=== PATIENT | female | born 1960 | race Caucasian/White ===

== ENCOUNTER → 2017-02-27 | Outpatient (CLI) | payer OTHER ==
[~2017-02-27] MED LIST: BIOTIN2500 MCG PO; BIOTIN5 MG PO; Celexa40 MG PO; D3 DOTS2000 UNIT PO; ESTROVEN ENERG1 EACH PO; EZET10 PO; FISH1000 PO; Hair, Skin & N1 EACH PO; LEVSOD50; MAGNESIUM250 MG PO; MILK THISTLE140 MG PO; Synthroid25 MCG PO; VITA-BEE WITH1 EACH PO; Vitamin C1000 M1 PO
== END ==
LOC: LAB SRC 17:57
DX: N39.0 Urinary tract infection, site not specified (principal)
CPT/HCPCS: 87086

== ENCOUNTER → 2017-06-19 | Outpatient (CLI) | payer OTHER | LOC: LAB SRC 17:16 → LAB SHORT 17:16 | DX: N94.10 Unspecified dyspareunia (principal) | CPT/HCPCS: 87086; 87147 ==

== ENCOUNTER → 2018-06-18 | Outpatient (CLI) | payer OTHER ==
[2018-06-20 14:07] LABS: HPV 16 Negative (Negative); HPV 18 Negative (Negative); HPV OTHER HR TYPES Negative (Negative)
== END | disposition home or self-care (01) ==
LOC: LAB SHORT 16:05 → LAB SRC 16:05
PROVIDERS: Nurse Practitioner Family
DX: Z01.419 Encounter for gynecological examination (general) (routine) without abnormal findings (principal)
CPT/HCPCS: 87624; G0123

== ENCOUNTER 2018-12-28 05:14 | Observation (INO) | payer OTHER ==
[~2018-12-28] VITALS: Ht 162.6 cm; Wt 77.1 kg
[2018-12-28 05:52] LABS: BASOPHILS ABSOLUTE AUTO 0.02 K/mm3 (0.00-0.23); BASOPHILS PERCENT AUTO 0 % (0-2); EOSINOPHILS ABSOLUTE AUTO 0.03 K/mm3 (0.00-0.68); EOSINOPHILS PERCENT AUTO 0 % (0-6); Hematocrit 40.8 % (33.0-51.0); Hemoglobin 13.9 g/dL (11.5-16.0); IMMATURE GRAN ABSOLUTE AUTO 0.05 K/mm3 (0.00-0.10); IMMATURE GRAN PERCENT AUTO 0 % (0-1); LYMPHOCYTES ABSOLUTE AUTO 1.11 K/mm3 (0.84-5.20); LYMPHOCYTES PERCENT AUTO 9 % (21-46); MONOCYTES ABSOLUTE AUTO 0.43 K/mm3 (0.16-1.47); MONOCYTES PERCENT AUTO 4 % (4-13); Mean Corpuscular HGB 29.5 pg (26.0-34.0); Mean Corpuscular HGB Conc 34.1 g/dL (31.5-36.5); Mean Corpuscular Volume 87 fL (80-100); Mean Platelet Volume 8.8 fL (9.1-12.4); NEUTROPHILS ABSOLUTE AUTO 10.54 K/mm3 (1.96-9.15); NEUTROPHILS PERCENT AUTO 87 % (41-73); Platelet Count 302 K/mm3 (150-400); RDW Coefficient Variation 11.4 % (11.7-14.2); RDW Standard Deviation 36.5 fL (35.1-46.3); Red Blood Cell Count 4.71 M/mm3 (3.80-5.20); White Blood Cell Count 12.18 K/mm3 (4.00-11.30)
[2018-12-28 05:59] LABS: Source, Urine Clean Catch
[2018-12-28 06:02] LABS: Bilirubin, Urine Neg (Neg); Blood, Urine 2+ (Neg); Glucose Qualitative, Urine Neg (Neg); Ketones, Urine 1+ (Neg); Leukocyte Esterase, Urine Neg (Neg); Nitrite, Urine Neg (Neg); Protein, Urine 1+ (Neg); Specific Gravity, Urine 1.015 (1.003-1.022); Urobilinogen, Urine NORM (Normal)
[2018-12-28 06:07] LABS: Alanine Aminotransfer (ALT/SGP 58 U/L (12-78); Albumin, Blood 4.1 g/dL (3.4-5.0); Alk Phos 99 U/L (50-136); Anion Gap 10 mmol/L (6-16); Aspartate Aminotrans (AST/SGOT 32 U/L (12-37); Bilirubin, Total 0.3 mg/dL (0.1-1.0); Blood Urea Nitrogen 16 mg/dL (8-24); Bun/Creatinine Ratio 25.8 (12.0-20.0); CO2, Blood 25 mmol/L (21-32); Calcium, Blood 9.6 mg/dL (8.5-10.1); Chloride, Blood 102 mmol/L (98-108); Creatinine, Blood 0.62 mg/dL (0.40-1.00); Ethanol (Alcohol), Blood, Med <3 mg/dL; Globulin, Blood 4.1 g/dL (2.2-4.0); Glomerular Filtration Rate >60 (60-); Glucose, Blood 154 mg/dL (70-99); Magnesium, Blood 1.9 mg/dL (1.6-2.4); Potassium, Blood 3.3 mmol/L (3.5-5.5); Sodium, Blood 137 mmol/L (136-145); Total Protein, Blood 8.2 g/dL (6.4-8.2)
[2018-12-28 06:08] LABS: Appearance, Urine Hazy (Clear); Color, Urine Yellow (P-Yellow)
[2018-12-28 06:09] LABS: White Blood Cells, Urine 0-2 /hpf (0-5)
[2018-12-28 06:10] LABS: Amorphous Mod (0-Heavy); Bacteria Few /hpf; Mucus Light (0-Heavy); Squamous Epithelial Cells Few /hpf (Few); Transitional Epithelial Cells Mod /hpf (0-Rare)
--- NOTE | 2018-12-28 14:00 | NUR ---
PT TO DAY SURGERY ON BED AT APROX 1340
--- NOTE | 2018-12-28 14:33 | NUR ---
IN PACU FOR PRE-OP HOLDING.
--- NOTE | 2018-12-28 18:31 | NUR ---
SHIFT SUMMARY PT POD 0 LAP JOANNE, 4 LAP SITES C/D/I. PT HAS HAD NO N/V OR C/O PAIN POST-OP. TOLERATING REGULAR DIET.
--- NOTE | 2018-12-29 05:08 | NUR ---
SHIFT SUMMARY PT POD#1 FOR LAP JOANNE. GAUZE X4 ON ABD. PT IND TO BATHROOM WITH STANDBY ASSIST. VOIDING, NO BM OR FLATUS REPORTED SINCE SURGERY. PAIN MANAGED WITH PO PAIN MED PER ORDER. PT TOLERATING REGULAR DIET. DENIES N/V. HAS RESTED MOST OF THE NIGHT. PT PUT ON 2L O2 NC FOR O2 OF 88% ON RA. PT GIVEN AND EDUCATED ON USE OF INCENTIVE SPIROMETER. ALL OTHER V/S STABLE.
[2018-12-29] MEDS ORDERED: HYDR1TAB94 PO (10:23)
--- NOTE | 2018-12-29 11:02 | NUR ---
DISCHARGED IVS DC'D. REVIEWED DC PAPERWORK; PT VERBALIZED UNDERSTANDING. PT LEAVING UNIT IN , ACCOMPANIED BY DAYLIN. PT HAS DC PAPERWORK AND POSSESSIONS IN HAND.
== END 2018-12-29 11:05 | disposition home or self-care (01) ==
LOC: ER 05:14 → SURS 05:15 → ER 05:15 → SURS 05:15 → ER 12-29 05:14 → SURS 12-29 11:05
PROVIDERS: Emergency Medicine; ADMIT Surgery
DX: K80.12 Calculus of gallbladder with acute and chronic cholecystitis without obstruction (principal); E78.5 Hyperlipidemia, unspecified; I10 Essential (primary) hypertension; E03.9 Hypothyroidism, unspecified; Z88.8 Allergy status to other drugs, medicaments and biological substances; Z79.899 Other long term (current) drug therapy
CPT/HCPCS: 36415; 76705; 80053; 81001; 83690; 83735; 85025; 87086; 88304; 93005; 93010; 96361; 96372; 96374; 96375; 96376; 99285-25; A9270-GY; G0378; G0480; J0690; J1100; J1650; J1885; J2250; J2370; J2405; J2550; J2704; J3010; J7030; J7120

== ENCOUNTER 2020-06-08 17:19 | Emergency (ER) | payer OTHER ==
[~2020-06-08] VITALS: Ht 162.6 cm; Wt 81.7 kg
[~2020-06-08 17:19] MED LIST changes: +HYDR1TAB94 PO
[2020-06-08] MEDS ORDERED: Vibramycin100 MG PO (22:42)
== END 2020-06-08 23:14 | disposition home or self-care (01) ==
LOC: ER 17:19
DX: L02.415 Cutaneous abscess of right lower limb (principal); I10 Essential (primary) hypertension; E03.9 Hypothyroidism, unspecified; E78.5 Hyperlipidemia, unspecified; Z87.891 Personal history of nicotine dependence; Z79.899 Other long term (current) drug therapy; Z88.8 Allergy status to other drugs, medicaments and biological substances
CPT/HCPCS: 10060; 99283-25; A9270